=== PATIENT | male | born 1960 | race African-American/Black ===

== ENCOUNTER 2019-04-06 20:01 | Inpatient (IN) | payer MEDICARE, MEDICAID ==
[~2019-04-06] VITALS: Ht 175.3 cm; Wt 123.6 kg
[2019-04-07 12:36] VITALS: BP 113/74
== END 2019-04-07 14:17 | disposition home or self-care (01) | DRG 682 ==
LOC: ED 23:33 → 5SO 23:43
PROVIDERS: ADMIT Internal Medicine; ATTEND Internal Medicine
DX: N17.0 Acute kidney failure with tubular necrosis (principal); J96.01 Acute respiratory failure with hypoxia; J44.1 Chronic obstructive pulmonary disease with (acute) exacerbation; E87.1 Hypo-osmolality and hyponatremia; E66.01 Morbid (severe) obesity due to excess calories; Z91.018 Allergy to other foods; D69.6 Thrombocytopenia, unspecified; E78.00 Pure hypercholesterolemia, unspecified; E86.0 Dehydration; E87.6 Hypokalemia; F17.210 Nicotine dependence, cigarettes, uncomplicated; G47.00 Insomnia, unspecified; G47.33 Obstructive sleep apnea (adult) (pediatric); I10 Essential (primary) hypertension; I25.10 Atherosclerotic heart disease of native coronary artery without angina pectoris; I25.2 Old myocardial infarction; M54.30 Sciatica, unspecified side
CPT/HCPCS: 36415; 71046; 71275; 80048; 80053; 80307; 81001; 83605; 83690; 83735; 83880; 84484; 85025; 85379; 87040; 93005; 94640; 96361; 96374; 96375; G0378; J0456; J1644; J2405; J7620; Q9967; J2920; J2930; J7030; J7050

== ENCOUNTER 2019-05-07 20:25 | Emergency (ER) | payer MEDICARE, MEDICAID ==
[~2019-05-07] VITALS: Ht 175.3 cm; Wt 122.0 kg
[2019-05-07 20:39] VITALS: BP 177/101
== END 2019-05-07 21:36 | disposition home or self-care (01) ==
LOC: ED 21:34
DX: H00.015 Hordeolum externum left lower eyelid (principal); J44.9 Chronic obstructive pulmonary disease, unspecified
CPT/HCPCS: 99282

== ENCOUNTER 2019-11-06 12:18 | Emergency (ER) | payer MEDICARE, MEDICAID ==
[~2019-11-06] VITALS: Ht 175.3 cm; Wt 131.0 kg
[~2019-11-06 12:18] MED LIST: AMLO5TAB10 PO; ATOR40TA78 PO; CARV6.25 PO; GABA-826 PO; HYDR25TA6 PO; IPRA4AER PO; OXYC-307 PO; TIZA100P2 PO; [UNRECOGNIZED DRUG - CODE] PO
[2019-11-06] MEDS ORDERED: ALBUTEROL/IPRATROPIUM 2.5MG/0.5MG, 3 ML NPPB ONE (13:00)
[2019-11-06] MEDS ORDERED: SODIUM CHLORIDE FLUSH 10ML SYR IVF ONE (13:00)
[2019-11-06] MEDS ORDERED: BENZONATATE 100 MG CAPSULE PO ONE (13:00)
[2019-11-06] MEDS ORDERED: KETOROLAC 30 MG/1 ML IVPush ONE (13:00)
[2019-11-06 13:25] LABS: BASOPHILS # (AUTO) 0.03 x10^3/uL (0-0.1); BASOPHILS % (AUTO) 0 % (0-1); EOSINOPHILS # (AUTO) 0.25 x10^3/uL (0-0.4); EOSINOPHILS % (AUTO) 3 % (1-7); LYMPHOCYTES % (AUTO) 23 % (22-44); MD NO; MEAN CORPUSCULAR HEMOGLOBIN 31.6 pg (27.5-34.5); MEAN CORPUSCULAR HGB CONC 33.7 g/dL (33.2-36.2); MEAN CORPUSCULAR VOLUME 93.7 fL (81-97); MEAN PLATELET VOLUME 9.3 fL (7.4-10.4); MONOCYTES # (AUTO) 0.92 x10^3/uL (0.2-0.8); MONOCYTES % (AUTO) 10 % (2-9); NEUTROPHILS # (AUTO) 6.33 x10^3/uL (1.8-6.8); NEUTROPHILS % (AUTO) 65 % (42-75); PLATELET COUNT 220 x10^3/uL (130-400); RED BLOOD COUNT 4.97 x10^6/uL (4.38-5.82); RED CELL DISTRIBUTION WIDTH 15.4 % (9.4-14.8)
[2019-11-06] MEDS ORDERED: ALBUTEROL/IPRATROPIUM 2.5MG/0.5MG, 3 ML ONE (13:27)
[2019-11-06 13:34] LABS: ALBUMIN 3.4 g/dL (3.4-5.0); ANION GAP 5 mmol/L (5-15); CALCIUM 8.6 mg/dL (8.5-10.1); CHLORIDE 106 mmol/L (98-107)
[2019-11-06 13:45] LABS: ALANINE AMINOTRANSFERASE 49 U/L (12-78); CREATININE 1.06 mg/dL (0.7-1.3)
--- NOTE | 2019-11-06 13:45 | NUR ---
PT TO ROOM FROM LOBBY VIA WHEELCHAIR. C/O CP THIS MORNING WITH COUGH AND SOB. PT ON MONITORS, POC, MEDICATIONS DISCUSSED. VSS. CALL LIGHT W/I REACH.
[2019-11-06 13:52] LABS: RAPID INFLUENZA A Negative (Negative); RAPID INFLUENZA B Negative (Negative)
[2019-11-06 14:04] LABS: TROPONIN I < 0.015 ng/mL (0.000-0.045)
[2019-11-06] MEDS ORDERED: KETOROLAC 30 MG/1 ML ONE (14:04)
[2019-11-06] MEDS ORDERED: BENZONATATE 100 MG CAPSULE ONE (14:04)
[2019-11-06 14:11] LABS: ALKALINE PHOSPHATASE 99 U/L (45-117); BILIRUBIN,TOTAL 0.4 mg/dL (0.2-1.0); TOTAL PROTEIN 7.1 g/dL (6.4-8.2)
--- NOTE | 2019-11-06 14:17 | NUR ---
PT SP02 FALLS TO 82% WHEN HE RESTS DESPITE HAVING THE HOB UP AT 90 DEGREE ANGLE. PT WITH HX OF SLEEP APNEA AND USES CPAP AT NIGHT. 02 4L NC PLACED WITH EFFECT.
[2019-11-06 14:55] VITALS: BP 136/75
--- NOTE | 2019-11-06 14:56 | NUR ---
TASK RN NOTE: REPORT RECEIVED FROM [facility]. PT IS A&O, RESPS EVEN AND UNLABORED. PT SPEAKING IN FULL SENTENCES WITHOUT DIFFICULTY. PT DENIES CHEST PAIN. PT GIVEN DC INSTRUCTIONS AND SCRIPT, EDUCATED REGARDING RX FOR TESSALON, PREDNISONE, FLEXIRIL AND NAPROSYN. PIV DC'D WITH TIP INTACT. PT AMB TO DC DESK WITH STEADY GAIT USING OWN CANE, WITH PT AT DC.
== END 2019-11-06 14:56 | disposition home or self-care (01) ==
LOC: ED 14:37
DX: J43.9 Emphysema, unspecified (principal); I25.2 Old myocardial infarction
CPT/HCPCS: 36415; 71045; 80053; 83880; 84484; 85025; 87400; 93005; 94640; 96374; 99285; J1885; J7512; J7620